=== PATIENT | male | born 1955 | race Caucasian/White ===

== ENCOUNTER 2020-12-27 20:31 | Emergency (ER) | payer OTHER | END 2020-12-27 22:35 | disposition short-term general hospital (02) | LOC: ER1 20:31 | DX: S97.82XA Crushing injury of left foot, initial encounter (principal); S92.242A Displaced fracture of medial cuneiform of left foot, initial encounter for closed fracture; S93.305A Unspecified dislocation of left foot, initial encounter; Z90.89 Acquired absence of other organs; Z86.73 Personal history of transient ischemic attack (TIA), and cerebral infarction without residual deficits; Z88.7 Allergy status to serum and vaccine; W22.8XXA Striking against or struck by other objects, initial encounter; Y92.009 Unspecified place in unspecified non-institutional (private) residence as the place of occurrence of the external cause | CPT/HCPCS: 29515; 73564; 73630; 99284 ==

== ENCOUNTER 2021-01-17 | Emergency (ER) | payer OTHER ==
[2021-01-17 00:51] LABS: HEMOGLOBIN 15.9 gm/dl (14.0-17.5); RED BLOOD COUNT 4.93 M/UL (4.20-5.50); WHITE BLOOD COUNT 7.1 K/UL (4.5-11.0)
[2021-01-17 01:03] LABS: BUN/CREATININE RATIO 22 (0-10)
[2021-01-17] MEDS ORDERED: IBUPROFEN400 MG PO (12:40)
[2021-01-17] MEDS ORDERED: LOVENOX40 MG/0.4 SQ (12:40)
[2021-01-17] MEDS ORDERED: GABAPENTIN100 MG PO (12:40)
[2021-01-17] MEDS ORDERED: SINGULAIR10 MG PO (12:42)
[2021-01-17] MEDS ORDERED: ROBAXIN 750 MG750 MG PO (12:42)
[2021-01-17] MEDS ORDERED: LEVOTHYROXINE75 MC1 PO (12:43)
[2021-01-17] MEDS ORDERED: ASPIRIN EC81 MG PO (21:11)
[2021-01-18] MEDS ORDERED: PROTONIX40 MG PO (11:13)
[2021-01-18] MEDS ORDERED: ELIQUIS5 M1 PO (11:13)
== END 2021-01-17 04:35 | disposition home or self-care (01) ==
LOC: ER1
PROVIDERS: Physician Assistant
DX: R07.9 Chest pain, unspecified (principal); J45.909 Unspecified asthma, uncomplicated; Z86.711 Personal history of pulmonary embolism; Z86.718 Personal history of other venous thrombosis and embolism; Z79.899 Other long term (current) drug therapy; Z88.8 Allergy status to other drugs, medicaments and biological substances
CPT/HCPCS: 80053; 82550; 82553; 83874; 83880; 84484; 85025; 85610; 85730; 93005; J1644; Q9967

== ENCOUNTER 2021-01-17 10:49 | Observation (INO) | payer OTHER ==
[~2021-01-17] VITALS: Ht 182.9 cm; Wt 93.0 kg
[2021-01-17] MEDS ORDERED: GABAPENTIN100 MG PO (12:40)
[2021-01-17] MEDS ORDERED: LOVENOX40 MG/0.4 SQ (12:40)
[2021-01-17] MEDS ORDERED: IBUPROFEN400 MG PO (12:40)
[2021-01-17] MEDS ORDERED: ROBAXIN 750 MG750 MG PO (12:42)
[2021-01-17] MEDS ORDERED: SINGULAIR10 MG PO (12:42)
[2021-01-17] MEDS ORDERED: LEVOTHYROXINE75 MC1 PO (12:43)
[2021-01-17] MEDS ORDERED: ASPIRIN EC81 MG PO (21:11)
--- NOTE | 2021-01-18 00:33 | NUR ---
01/17/212049 PART 2 OF ASSESSMENT WAS DONE AT THIS TIME BUT UNABLE TO CHANGE TIME ON IT.
--- NOTE | 2021-01-18 00:34 | NUR ---
01/17/211999 PT ARRIVED TO FLOOR BY WAY OF STRETCHER FROM ER. ADMITTED TO ROOM 5112. PT ADMITTED WITH PE. PT HAD SURGERY ABOUT A WEEK AGO FOR DROPPING AIR COMPRESSOR ON HIS LEFT FOOT. PT STATES STARTING HAAVING SHORTNESS OF BREATH AND TIGHTNESS IN HIS CHEST YESTERDAY. PT ARRIVED TO FLOOR WITH HEPARIN DRIP INFUSING AT 17ML/HR TO RIGHT HAND.
--- NOTE | 2021-01-18 00:36 | NUR ---
01/16/212004 PTT 137. DR PEREZ NOTIFIED INSTRUCTED TO FOLLOW HEPARIN PROTOCOL ORDERS. HEPARIN STOPPED AT THIS TIME.
--- NOTE | 2021-01-18 00:40 | NUR ---
01/16/212123 PT NEEDS TELEMETRY CALLED TELEMETRY STATES THEY HAVE NO TELEMETRY BOX OR PULSE OX CORDS. HOUSESUPERVISOR NOTIFIED.
--- NOTE | 2021-01-18 00:42 | NUR ---
01/16/21 4805 HEPARIN 2500 UNIT IVP BOLUS DONE AND HEPARIN STARTED BACK AT 19ML/HR
[2021-01-18 04:57] LABS: HEMOGLOBIN 15.7 gm/dl (14.0-17.5); RED BLOOD COUNT 4.97 M/UL (4.20-5.50)
[2021-01-18 05:01] LABS: WHITE BLOOD COUNT 9.4 K/UL (4.5-11.0)
[2021-01-18 05:18] LABS: BUN/CREATININE RATIO 25 (0-10)
[2021-01-18] MEDS ORDERED: ELIQUIS5 M1 PO (11:13)
[2021-01-18] MEDS ORDERED: PROTONIX40 MG PO (11:13)
== END 2021-01-18 16:18 | disposition home or self-care (01) ==
LOC: ER1 10:49 → M/S 11:55 → CDU 11:55 → M/S 19:31
PROVIDERS: Physician Assistant; ADMIT Family Medicine
DX: I26.99 Other pulmonary embolism without acute cor pulmonale (principal); E03.9 Hypothyroidism, unspecified; J45.909 Unspecified asthma, uncomplicated; Z86.718 Personal history of other venous thrombosis and embolism; Z85.828 Personal history of other malignant neoplasm of skin; Z98.890 Other specified postprocedural states; Z88.7 Allergy status to serum and vaccine; Z79.82 Long term (current) use of aspirin; Z79.899 Other long term (current) drug therapy; Z20.822 Contact with and (suspected) exposure to COVID-19
CPT/HCPCS: ECHO; 36415; 80048; 80053; 82550; 82553; 83874; 83880; 84484; 85025; 85379; 85610; 85730; 93005; 93306; 93970; 96374; 96376; 99285; G0378; J1644; Q9967; U0002

== ENCOUNTER → 2021-08-15 | Outpatient (CLI) | payer OTHER ==
[~2021-08-15] MED LIST: ASPIRIN EC81 MG PO; ELIQUIS5 M1 PO; GABAPENTIN100 MG PO; IBUPROFEN400 MG PO; LEVOTHYROXINE75 MC1 PO; LOVENOX40 MG/0.4 SQ; PROTONIX40 MG PO; ROBAXIN 750 MG750 MG PO; SINGULAIR10 MG PO
== END ==
LOC: HEART 5 12:14
DX: R06.02 Shortness of breath (principal)
CPT/HCPCS: 94010

== ENCOUNTER → 2021-10-31 | Outpatient (CLI) | payer OTHER ==
[2021-10-31 11:16] LABS: BUN/CREATININE RATIO 16 (0-10)
== END ==
LOC: MRI 10:22
PROVIDERS: Physician Assistant
DX: E78.5 Hyperlipidemia, unspecified (principal); R90.89 Other abnormal findings on diagnostic imaging of central nervous system
CPT/HCPCS: 36415; 70553; 80053; A9577